=== PATIENT | female | born 1995 | race Caucasian/White ===

== ENCOUNTER 2019-11-18 18:28 | Emergency (ER) | payer MEDICAID ==
[~2019-11-18] VITALS: Ht 149.9 cm; Wt 61.2 kg
[2019-11-18 18:43] VITALS: BP 127/76; Ht 149.9 cm; Wt 61.2 kg
== END 2019-11-18 19:38 | disposition home or self-care (01) ==
LOC: ED 18:28
DX: K04.7 Periapical abscess without sinus (principal)